=== PATIENT | female | born 1960 | race Caucasian/White ===

== ENCOUNTER → 2017-08-09 | Outpatient (CLI) | payer MEDICAID ==
[~2017-08-09] MED LIST: AMLO-512 PO; AMLO2.5T PO; FURO20 PO; FURO40 PO; LORA1TAB3 PO; MIRT15 PO; OMEP20 PO
== END | disposition home or self-care (01) ==
LOC: RADMN 09:56
PROVIDERS: ATTEND Internal Medicine Cardiovascular Disease
DX: I11.9 Hypertensive heart disease without heart failure (principal); I42.9 Cardiomyopathy, unspecified
CPT/HCPCS: 78472; Q3010